=== PATIENT | female | born 1995 | race Caucasian/White ===

== ENCOUNTER → 2021-02-12 15:29 | Outpatient (BNVA) | payer OTHER, SELFPAY | PROVIDERS: PCP Nurse Practitioner Family; Visit Provider Nurse Practitioner Women's Health | DX: Z01.419 Encounter for gynecological examination (general) (routine) without abnormal findings (principal) | CPT/HCPCS: 88175 ==

== ENCOUNTER → 2021-06-09 14:35 | Outpatient (BNVA) | payer OTHER, SELFPAY | PROVIDERS: PCP Nurse Practitioner Family; Visit Provider Nurse Practitioner Psychiatric/Mental Health | DX: Z03.89 Encounter for observation for other suspected diseases and conditions ruled out (principal) | CPT/HCPCS: 80053; 80061; 83036 ==

== ENCOUNTER 2021-12-11 11:27 | Inpatient (IN) | payer OTHER, SELFPAY ==
[2021-12-11 12:00] VITALS: BP 128/88; PULSE 76; RESP 20; TEMP 36.9; O2SAT 99; BMI 31.2
[2021-12-11 12:07] VITALS: BP 122/86; PULSE 72; RESP 20; O2SAT 97
--- NOTE | 2021-12-11 12:30 | W.ED.PSYCHS ---
HPI - Psych General: Chief Complaint: Psychiatric Symptoms Stated Complaint: SI Time Seen by Provider: 12/11/21 12:22 Source: patient Mode of arrival: ambulatory Limitations: no limitations History of Present Illness: 26-year-old female presents emergency room stating she having suicidal thoughts for the last 2 days. She having some relationship issues. Evidently her and her boyfriend are in some sort of open relationship she had violated the rules evidently and they are breaking up. MD complaint: suicidal ideation Onset (ago): minute(s) Duration: constant History of same: No Relieving factors: none Exacerbating factors: none Context: significant life stressor Associated psychiatric symptoms: none Associated symptoms: Reports suicidal ideation; Deny auditory hallucinations, visual hallucinations, delusions, depression, homicidal ideation or racing thoughts Treatments prior to arrival: none If self harm: admits thoughts of self harm Review of Systems Const: Denies: fever(s), chills, body aches, change in appetite, fatigue or malaise ENMT: Denies: throat pain, ear or mastoid pain, nasal discharge or nasal congestion Card: Denies: chest pain, edema, dyspnea on exertion or orthopnea Resp: Denies: dyspnea, productive cough or non-productive cough GI: Denies: abdominal pain, nausea, vomiting, hematemesis, coffee ground emesis, diarrhea, constipation, bloating, hematochezia or melena : Denies: flank pain, difficulty voiding, dysuria, urinary frequency or urinary urgency Skin/Breast: Denies: rash or pruritus Psych: Reports: suicidal ideation; Denies: depression, visual hallucinations, auditory hallucinations or homicidal ideation PFS ED PFSH: Medical History Bipolar II disorder Borderline personality disorder Contraceptive management Depression Generalized anxiety disorder Marijuana use Nicotine dependence, other tobacco product, uncomplicated vaping No pertinent past medical history neghx: htn,dm,thyroid,dvt/pe PCP: Unknown Psychiatric care Surgical History History of cholecystectomy Family History Grandmother Heart disease Paternal grandmother Breast cancer Maternal grandmother---dx age 40's-50's Cancer, Onset Age: 40 [employer] Grandfather Colon cancer Paternal grandfather--dx age 80's Mother Hypertension Family/Other Cervical cancer Paternal Cousin--dx age 20's Denies family history of Ovarian cancer Uterine cancer Thyroid disease Stroke Physical Exam Const: COMMON NORMALS: no acute distress GENERAL APPEARANCE: cooperative and comfortable ORIENTATION/CONSCIOUSNESS: Yes awake, Yes oriented to person, Yes oriented to place and Yes oriented to time HENMT: COMMON NORMALS: normocephalic, atraumatic and hearing grossly normal bilaterally HEAD & SCALP: normocephalic and atraumatic Neck/C-Spine: COMMON NORMALS: no JVD Resp: COMMON NORMALS: normal respiratory effort, No retractions, No use of accessory muscles and clear to auscultation bilaterally AUSCULTATION: clear to auscultation bilaterally Cardio: COMMON NORMALS: no JVD, regular rate, regular rhythm and No murmurs present (Cardio) RATE: regular rate RHYTHM: regular rhythm GI: COMMON NORMALS: Soft to palpation and No hepatosplenomegaly present AUSCULTATION: Yes normoactive bowel sounds PALPATION: Yes Soft to palpation, No Tenderness to palpation present (GI), No Guarding due to palpation present (GI) and Yes No hepatosplenomegaly present Extremity: COMMON NORMALS: normal to inspection, capillary refill normal, no clubbing, cyanosis or edema, no calf tenderness and no pedal edema Neuro: SENSORIUM/ORIENTATION: Yes oriented to person, Yes oriented to place and Yes oriented to time Psych: THOUGHT CONTENT: No delusions Skin: COMMON NORMALS: no rashes or lesions noted GENERAL SKIN EXAM: no rashes or lesions noted Course Vital Signs: Vital signs: Vital Signs Temperature 98.5 F 12/11/21 12:00 Pulse Rate 72 12/11/21 14:09 Respiratory Rate 20 H 12/11/21 12:07 Blood Pressure 122/86 12/11/21 14:09 Pulse Oximetry 97 12/11/21 14:09 MDM - Psych Medical Decision Making Patient severely depressed with suicidal ideation. She has some abrasions on her left wrist that appear to be from mechanical device she tells me there from a cat scratch however they are not spaced appropriately for the next one of them is that her right ankle to the other. In any event none of them are significant enough to cause serious harm. We will go ahead and admit her discussed with Dr. Matos orders written. Medical Records I reviewed the patient's medical records. Lab Data I reviewed the patient's lab results. : 12/11/21 12:30 12/11/21 12:30 Laboratory Results WBC 12.0 10^3/uL (4.0-10.0) H 12/11/21 12:30 RBC 5.15 10^6/uL (4.1-5.3) 12/11/21 12:30 Hgb 14.5 g/dL (11.5-15.3) 12/11/21 12:30 Hct 44.7 % (37.0-47.0) 12/11/21 12:30 MCV 86.8 fl (81-99) 12/11/21 12:30 MCH 28.2 pg (28.0-34.0) 12/11/21 12:30 MCHC 32.4 g/dL (30.0-36.0) 12/11/21 12:30 RDW 12.8 % (12.1-15.1) 12/11/21 12:30 Plt Count 345 10^3/cmm (130-400) 12/11/21 12:30 MPV 10.0 fL (7.4-10.4) 12/11/21 12:30 Neut % (Auto) 69.8 % 12/11/21 12:30 Lymph % (Auto) 23.1 % 12/11/21 12:30 [place] % (Auto) 6.3 % 12/11/21 12:30 Eos % (Auto) 0.1 % 12/11/21 12:30 Baso % (Auto) 0.4 % 12/11/21 12:30 Neut # (Auto) 8.38 10^3/uL (1.8-7.7) H 12/11/21 12:30 Lymph # (Auto) 2.8 10^3/uL (0.8-4.8) 12/11/21 12:30 [place] # (Auto) 0.8 10^3/uL (0.2-0.9) 12/11/21 12:30 Eos # (Auto) 0.0 10^3/uL (0.0-0.8) 12/11/21 12:30 Baso # (Auto) 0.1 10^3/uL (0.0-0.1) 12/11/21 12:30 Nucleated RBC % (auto) 0 % 12/11/21 12:30 Nucleated RBCs # 0.0 /100WBC 12/11/21 12:30 Sodium 140 mmol/L (136-145) 12/11/21 12:30 Potassium 3.5 mmol/L (3.5-5.1) 12/11/21 12:30 Chloride 101 mmol/L (98-107) 12/11/21 12:30 Carbon Dioxide 23 mmol/L (22-29) 12/11/21 12:30 Anion Gap 19.5 (5-19) H 12/11/21 12:30 BUN 8 mg/dL (6-20) 12/11/21 12:30 Creatinine 0.8 mg/dL (0.5-0.9) 12/11/21 12:30 GFR Calculation 88.1 mL/min (90-130) L 12/11/21 12:30 Glucose 95 mg/dL (65-115) 12/11/21 12:30 Calculated Osmolality 288 mOsm/kg (285-295) 12/11/21 12:30 Calcium 9.3 mg/dL (8.5-10.5) 12/11/21 12:30 Total Bilirubin 0.6 mg/dL (0.15-1.2) 12/11/21 12:30 AST 16 U/L (0-32) 12/11/21 12:30 ALT 8 U/L (0-33) 12/11/21 12:30 Alkaline Phosphatase 84 IU/L (35-105) 12/11/21 12:30 Total Protein 7.8 g/dL (6.6-8.7) 12/11/21 12:30 Albumin 5.0 g/dL (3.5-5.2) 12/11/21 12:30 Globulin 2.8 g/dL (1.3-4.6) 12/11/21 12:30 HCG, Qual Negative (Negative) 12/11/21 12:30 Salicylates < 0.3 mg/dL (3-10) L 12/11/21 12:30 Acetaminophen < 5.0 ug/mL (10-30) L 12/11/21 12:30 Discharge Plan Discharge Patient Disposition: Admitted As Inpatient Admit Provider: Holden Matos Clinical Impression: Suicidal ideation, Depression, Borderline personality disorder Condition: Stable Coding Level of Care Code ED Thread Roller for Chg Fwd Exam Comprehensive
[2021-12-11 13:05] LABS: Basophils # 0.1 10^3/uL (0.0-0.1); Basophils % 0.4 %; Eosinophils % 0.1 %; Hematocrit 44.7 % (37.0-47.0); Hemoglobin 14.5 g/dL (11.5-15.3); Lymphocytes # 2.8 10^3/uL (0.8-4.8); Lymphocytes % 23.1 %; Mean Corpuscular HGB Conc 32.4 g/dL (30.0-36.0); Mean Corpuscular Hemoglobin 28.2 pg (28.0-34.0); Mean Corpuscular Volume 86.8 fl (81-99); Monocytes # 0.8 10^3/uL (0.2-0.9); Monocytes % 6.3 %; Neutrophils # 8.38 10^3/uL (1.8-7.7); Neutrophils % 69.8 %; Nucleated Red Blood Cells % 0 %; Platelet Count 345 10^3/cmm (130-400); Red Blood Count 5.15 10^6/uL (4.1-5.3); Red Cell Distribution Width 12.8 % (12.1-15.1)
[2021-12-11 13:12] LABS: HCG, Serum Qual Negative (Negative)
[2021-12-11 13:25] LABS: Alanine Aminotransferase 8 U/L (0-33); Alkaline Phosphatase 84 IU/L (35-105); Anion Gap 19.5 (5-19); Aspartate Amino Transferase 16 U/L (0-32); Blood Urea Nitrogen 8 mg/dL (6-20); Calcium 9.3 mg/dL (8.5-10.5); Carbon Dioxide 23 mmol/L (22-29); Chloride 101 mmol/L (98-107); Globulin 2.8 g/dL (1.3-4.6); Glomerular Filtration Rate 88.1 mL/min (90-130); Glucose 95 mg/dL (65-115); Osmolality Calculated 288 mOsm/kg (285-295); Potassium 3.5 mmol/L (3.5-5.1); Sodium 140 mmol/L (136-145); Total Bilirubin 0.6 mg/dL (0.15-1.2); Total Protein 7.8 g/dL (6.6-8.7)
[2021-12-11 13:42] LABS: Acetaminophen < 5.0 ug/mL (10-30); Salicylate < 0.3 mg/dL (3-10)
[2021-12-11 14:09] VITALS: BP 122/86; PULSE 72; O2SAT 97
[2021-12-11] MEDS: LORazepam 2 mg Tablet PO (14:09)
[2021-12-11 15:06] VITALS: BP 124/78; PULSE 68; RESP 17; TEMP 37.1; O2SAT 98
[2021-12-11 21:29] VITALS: BP 124/91; PULSE 80; RESP 17; TEMP 36.8; O2SAT 96
[2021-12-12 06:00] VITALS: BP 117/76; PULSE 87; RESP 18; TEMP 36.8; O2SAT 97; BMI 31.2
[2021-12-12] MEDS: hyDROXYzine 25 mg Capsule 50 MG PO (09:51)
[2021-12-12] MEDS: buPROPion XL (24 HR) 150 mg Tablet PO (11:28)
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
[2021-12-12 14:00] VITALS: BP 163/75; PULSE 63; RESP 18; TEMP 36.5; O2SAT 98
[2021-12-12 20:52] VITALS: BP 137/70; PULSE 67; RESP 17; TEMP 36.7; O2SAT 97
[2021-12-13 06:00] VITALS: BP 116/74; PULSE 85; RESP 18; TEMP 36.7; O2SAT 98
[2021-12-13] MEDS: buPROPion XL (24 HR) 150 mg Tablet PO (10:32)
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
--- NOTE | 2021-12-13 13:08 | NPU.GN ---
[facility] Group Topic: Whine Barrel Activity General Mood of Group: Erna did attend and participate in group today. She was social with others. Hygiene is good. Client completed the [facility] new patient paperwork with the aide of this senior writer. Client seems stable.
[2021-12-13 14:00] VITALS: BP 116/79; PULSE 61; RESP 18; TEMP 36.6; O2SAT 99
[2021-12-13 15:30] VITALS: BP 116/79; PULSE 61; RESP 18; TEMP 36.6; O2SAT 99
== END 2021-12-13 17:03 | disposition home or self-care (01) | DRG 885 ==
LOC: ER 12:40 → NP 13:40
PROVIDERS: Admitting Provider Psychiatry & Neurology Psychiatry; Emergency Provider Family Medicine; Visit Provider Psychiatry & Neurology Psychiatry
DX: F31.81 Bipolar II disorder (principal); R45.851 Suicidal ideations; F60.3 Borderline personality disorder; F41.1 Generalized anxiety disorder; F17.290 Nicotine dependence, other tobacco product, uncomplicated; Z81.8 Family history of other mental and behavioral disorders; E66.9 Obesity, unspecified; Z68.31 Body mass index [BMI] 31.0-31.9, adult; Z63.0 Problems in relationship with spouse or partner; F43.25 Adjustment disorder with mixed disturbance of emotions and conduct
CPT/HCPCS: 80053; 80307; 84703; 85025; 97150; 97165; 99285

== ENCOUNTER → 2022-04-18 08:09 | Outpatient (BNVA) | payer BC, SELFPAY | PROVIDERS: Visit Provider Nurse Practitioner Psychiatric/Mental Health | DX: F31.81 Bipolar II disorder (principal); F41.1 Generalized anxiety disorder; F60.3 Borderline personality disorder | CPT/HCPCS: 99214 ==

== ENCOUNTER → 2023-02-21 08:40 | Outpatient (BNVA) | payer BC, MEDICAID, SELFPAY | PROVIDERS: Visit Provider Nurse Practitioner Women's Health | DX: Z11.3 Encounter for screening for infections with a predominantly sexual mode of transmission (principal) | CPT/HCPCS: 87491; 87591; 87661 ==

== ENCOUNTER 2023-11-25 10:20 | Emergency (ER) | payer BC, MEDICAID, SELFPAY ==
[2023-11-25 11:29] VITALS: BP 124/84; PULSE 100; RESP 18; TEMP 36.8; O2SAT 98; BMI 32.3
[2023-11-25 14:03] VITALS: BP 141/98; PULSE 93; RESP 18; O2SAT 100
--- NOTE | 2023-11-25 14:28 | W.ED.SKABFB ---
HPI - Skin/Abscess/Foreign Bdy General: Chief complaint: Skin/Abscess/Foreign Body Stated complaint: rash, swollen legs Time Seen by Provider: 11/25/23 13:06 Source: patient Mode of arrival: ambulatory Limitations: no limitations History of Present Illness: Patient presents to the emergency department today accompanied by family for evaluation treatment of continued extremity and truncal rash. Patient states that back in August she was prescribed Seroquel to take on an as-needed basis for her anxiety. Patient is followed by [facility] and reports that it was her physician with [facility] provided her this prescription. She states that for several months straight she was working almost every day and did not want to start a new medication as she was told one of the side effects could be intense drowsiness. It was not until several days ago that she took her first dose. She states after that time she developed a rash affecting her trunk and extremities. It is comprised of circular red areas which she indicates do itch. She states she has not been ill recently. She denies fevers or upper respiratory symptoms. Patient states she was taking some Benadryl when the rash showed up but did not seem to help. She went to [facility] and states they gave her a mixture of some antihistamines and Pepcid. She had a little bit of improvement of the rash but the rash never fully resolved and, patient remains today. She is concerned as she feels like her hands are tight and her feet feel swollen. She states her feet are sore because of the swelling. Patient felt like she had a little bit of itching and swelling to the right upper lip but has had no difficulty in swallowing or breathing. She denies any chest discomfort or shortness of breath. Review of Systems General: Reports: 10 or more systems reviewed and unremarkable except in HPI and below PFSH ED PFSH: Medical History Major depressive disorder, recurrent episode with anxious distress Marijuana use, episodic Nicotine dependence, other tobacco product, uncomplicated Vaping Psychiatric care Borderline personality disorder Generalized anxiety disorder No pertinent past medical history neghx: htn,dm,thyroid,dvt/pe PCP: Unknown Contraceptive management Surgical History History of cholecystectomy Family History Grandmother Heart disease Paternal grandmother Breast cancer Maternal grandmother---dx age 40's-50's Grandfather Colon cancer Paternal grandfather--dx age 80's Mother Hypertension Family/Other Cervical cancer Paternal Cousin--dx age 20's Denies family history of Ovarian cancer Uterine cancer Thyroid disease Stroke Social History Smoking and tobacco/nicotine status: current every day tobacco/nicotine user e-cigarettes E-Cigarette Details: vaporizer device Substance/Drug Use: current Physical Exam Const: COMMON NORMALS: no acute distress, average body habitus and patient oriented x3 HENMT: COMMON NORMALS: normocephalic, atraumatic, hearing grossly normal bilaterally, Normal external nose present and moist oral mucous membranes HEAD & SCALP: normocephalic and atraumatic NOSE: Normal external nose present OTHER: No angioedema. Patient's airway is patent. Mucous membranes are moist. Eye: COMMON NORMALS: Equal, round and reactive pupils present, EOMs intact bilaterally and conjunctivae normal CONJUNCTIVA: Yes conjunctivae normal PUPIL: Yes Equal, round and reactive pupils present Neck/C-Spine: COMMON NORMALS: no JVD Lymph: LYMPHATIC: no lymphadenopathy noted Resp: COMMON NORMALS: normal respiratory effort, No retractions and No use of accessory muscles OTHER: No stridor. No wheezing. Cardio: COMMON NORMALS: no JVD, regular rate and regular rhythm RATE: regular rate RHYTHM: regular rhythm GI: COMMON NORMALS: Normal to inspection, nondistended, normoactive bowel sounds present : COMMON NORMALS: Yes no CVA tenderness BLADDER/KIDNEY EXAM: Yes no CVA tenderness Back/Pelvis: COMMON NORMALS: no CVA tenderness and thoraco-lumbar ROM normal Extremity: COMMON NORMALS: normal to inspection, full ROM and capillary refill normal NARRATIVE EXTREMITY EXAM: I appreciate no edema in the feet or hands. Patient demonstrates ability to ambulate and weight-bear here in the ER. She also has full flexion extension and dinkey operator capabilities of her hands bilaterally. Neuro: COMMON NORMALS: patient oriented x3 Psych: COMMON NORMALS: mental status grossly normal, Normal thought process present, cooperative, normal affect and activity/motor behavior normal THOUGHT PROCESS: Normal thought process present Skin: NARRATIVE SKIN EXAM: Patient has a large areas of her abdomen and extremities covered in rash. Rashes comprised of large, mostly circular areas of central clearing and red ringed rim. It is slightly elevated on the edges and fully blanches with pressure. Rash spares palms and soles. No rash on face. Course Vital Signs: Vital signs: Vital Signs Temperature 98.2 F 11/25/23 11:29 Pulse Rate 67 11/25/23 16:19 Respiratory Rate 18 11/25/23 14:03 Blood Pressure 118/89 11/25/23 16:19 Pulse Oximetry 67 L 11/25/23 16:19 Oxygen Delivery Me thod Room Air 11/25/23 11:29 MDM - Skin/Abscess/Foreign Bdy Medicial Decision Making Patient presents emergency department today for evaluation and treatment of continued extremity and truncal rash. It did seem to correlate with onset of a new medication and patient reports some improvement after treatments with antihistamines and steroids. Patient had denied any recent illnesses. Lab work was generally unremarkable. Thyroid was normal. Even though the patient's new medication is not typically the cause of erythema multiforme, the patient's distribution characteristics of the rash seem very much like erythema multiforme. I went back to talk to the patient and explained that usually this is seen after antibiotics, NSAIDs, or viral illnesses. Patient then informs me that about 2 weeks ago she had COVID. Explained to the patient that there is a percentage of people who develop a rash with COVID which could explain her presentation today. Patient received antihistamines and steroid here in the emergency department had noticeable improvement of the rash though it did not fully resolve. Explained to the patient that this could be present for couple of weeks. We will treat her at home with a course of steroids and continued antihistamines for symptom relief. Patient was given information about erythema multiforme to look over at home. However, she was given strict return precautions for any facial swelling, lip swelling, tongue swelling, throat swelling, stridor, wheezing, or any difficulty breathing. Patient verbalizes understanding and agreement to the treatment plan. Differential Diagnosis Likely viral exanthem; Unlikely abscess of skin or subcutaneous tissue, dermatophytosis, urticaria, herpes zoster, cellulitis, eczema, insect bites, impetigo or contact dermatitis Lab Data 11/25/23 14:31 11/25/23 14:31 Laboratory Results WBC 10.70 10^3/uL (3.29-11.43) 11/25/23 14:31 RBC 4.82 10^6/uL (3.85-5.65) 11/25/23 14:31 Hgb 13.40 g/dL (11.27-16.99) 11/25/23 14:31 Hct 40.4 % (36-47) 11/25/23 14:31 MCV 83.8 fl (85-98) L 11/25/23 14:31 MCH 27.8 pg (27-33) 11/25/23 14:31 MCHC 33.2 g/dL (30-55) 11/25/23 14:31 RDW 12.9 % (12.1-15.1) 11/25/23 14:31 Plt Count 288 10^3/cmm (157-399) 11/25/23 14:31 MPV 10.0 fL (7.4-10.4) 11/25/23 14:31 Neut % (Auto) 79.5 % 11/25/23 14:31 Lymph % (Auto) 17.3 % 11/25/23 14:31 [place] % (Auto) 2.8 % 11/25/23 14:31 Eos % (Auto) 0.0 % 11/25/23 14:31 Baso % (Auto) 0.1 % 11/25/23 14:31 Neut # (Auto) 8.51 10^3/uL (1.8-7.7) H 11/25/23 14:31 Lymph # (Auto) 1.9 10^3/uL (0.8-4.8) 11/25/23 14:31 [place] # (Auto) 0.3 10^3/uL (0.2-0.9) 11/25/23 14:31 Eos # (Auto) 0.0 10^3/uL (0.0-0.8) 11/25/23 14:31 Baso # (Auto) 0.0 10^3/uL (0.0-0.1) 11/25/23 14:31 Nucleated RBC % (auto) 0 % 11/25/23 14:31 Nucleated RBCs # 0.0 /100WBC 11/25/23 14:31 ESR 5 mm/hr (0-15) 11/25/23 14:31 Sodium 139 mmol/L (136-145) 11/25/23 14:31 Potassium 3.8 mmol/L (3.5-5.1) 11/25/23 14:31 Chloride 104 mmol/L (98-107) 11/25/23 14:31 Carbon Dioxide 26 mmol/L (22-29) 11/25/23 14:31 Anion Gap 12.8 (5-19) 11/25/23 14:31 BUN 6 mg/dL (6-20) 11/25/23 14:31 Creatinine 0.6 mg/dL (0.5-0.9) 11/25/23 14:31 GFR Calculation 120.8 mL/min (90-130) 11/25/23 14:31 Glucose 104 mg/dL (65-115) 11/25/23 14:31 Calculated Osmolality 286 mOsm/kg (285-295) 11/25/23 14:31 Calcium 9.6 mg/dL (8.5-10.5) 11/25/23 14:31 Total Bilirubin 0.8 mg/dL (0.15-1.2) 11/25/23 14:31 AST 21 U/L (0-32) 11/25/23 14:31 ALT 10 U/L (0-33) 11/25/23 14:31 Alkaline Phosphatase 73 U/L (35-105) 11/25/23 14:31 Total Protein 7.0 g/dL (6.6-8.7) 11/25/23 14:31 Albumin 3.9 g/dL (3.5-5.2) 11/25/23 14:31 Globulin 3.1 g/dL (1.3-4.6) 11/25/23 14:31 TSH 2.41 uIU/mL (0.27-4.20) 11/25/23 14:31 HCG, Qual Negative (Negative) 11/25/23 13:56 Urine Color Straw (Yellow) 11/25/23 13:56 Urine Appearance Clear (CLEAR) 11/25/23 13:56 Urine pH 7 (5-7) 11/25/23 13:56 Ur Specific [place] 1.000 (1.005-1.030) L 11/25/23 13:56 Urine Protein Neg (Negative) 11/25/23 13:56 Urine Glucose (UA) Norm (Normal) 11/25/23 13:56 Urine Ketones Negative (Negative) 11/25/23 13:56 Urine Blood Neg (Negative) 11/25/23 13:56 Urine Nitrate Negative (Negative) 11/25/23 13:56 Urine Bilirubin Neg (Negative) 11/25/23 13:56 Urine Urobilinogen Norm mg/dL (Negative) 11/25/23 13:56 Ur Leukocyte Esterase 1+ (Negative) H 11/25/23 13:56 Urine RBC None /hpf (0-2) 11/25/23 13:56 Urine WBC 15-25 /hpf (0-5) H 11/25/23 13:56 Ur Squamous Epith Cells 0-4 /hpf (0-5) H 11/25/23 13:56 Amorphous Sediment Not Reportable 11/25/23 13:56 Urine Bacteria Trace /hpf (NONE) 11/25/23 13:56 No radiology studies performed this visit Discharge Plan Discharge Patient Disposition: Home Clinical Impression: Erythema multiforme Condition: Stable Prescriptions: New prednisone 20 mg tablet See Rx Instructions .ROUTE .COMPLEX 14 Days Qty: 25 0RF Rx Instructions: take 3 tabs daily for 3 days. Take 2 tablets daily for 5 days. Then take 1 tablet daily until gone. No Action ParaGard T 380A 380 square mm intrauterine device 1 device intrauterine ONCE Qty: 1 0RF quetiapine [Seroquel] 25 mg tablet 25 mg PO DAILY PRN (Reason: anxiety/agitation) Qty: 30 2RF Rx Instructions: May take one tablet daily as needed for anxiety/agitation bupropion HCl 150 mg tablet sustained-release 12 hr 150 mg PO BID Qty: 60 3RF Rx Instructions: Take one tablet in am and at 2 pm Discharge Orders: Discharge ED (Routine); Ordered 11/25/23 Ordered By: Trish Vela Discharge Diet: Usual diet Discharge Activity: Increase activity as tolerated Activity Restrictions/Additional Instructions: All of your lab work today looks good. You have no signs of any bacterial infection, anemia, abnormal blood counts, liver, kidney, or electrolyte abnormalities. Your thyroid function is also within normal limits today. Given the negative lab work, characteristic of your rash and, with your recent COVID history I do believe you have a condition called erythema multiforme. This is a rash that we see in a small percentage of patients who have COVID. I am providing you some medication to help treat this rash but, be aware rash can last a couple of weeks. Want you to continue taking your Benadryl and your cetirizine as these can also help control the rash. While this treatment will most likely not resolve the rash, we do hope to improve your itching and the severity of the redness of the rash. Be aware that hot showers or exercise can cause the rash to be more enhanced and noticeable. If you develop any facial swelling, lip swelling, tongue swelling, throat swelling, difficulty breathing, shortness of breath you need to be seen and reevaluated in the ER as that type of reaction is different and requires emergent evaluation. Coding Level of Care Code ED Yield Improvement Engineer for Tiffanie Franco
[2023-11-25] MEDS: famotidine 20 mg/2 mL INJ 40 MG IVP (14:35)
[2023-11-25] MEDS: sodium chloride 0.9% 500 ML IV (14:36)
[2023-11-25] MEDS: diphenhydrAMINE 50 mg/mL SDV 1mL IVP (14:38)
[2023-11-25] MEDS: methylPREDNISolone sod succ 125 mg/2 mL INJ IVP (14:39)
[2023-11-25 14:40] LABS: Basophils % 0.1 %; Hematocrit 40.4 % (36-47); Lymphocytes # 1.9 10^3/uL (0.8-4.8); Lymphocytes % 17.3 %; Mean Corpuscular HGB Conc 33.2 g/dL (30-55); Mean Corpuscular Hemoglobin 27.8 pg (27-33); Mean Corpuscular Volume 83.8 fl (85-98); Monocytes # 0.3 10^3/uL (0.2-0.9); Monocytes % 2.8 %; Neutrophils # 8.51 10^3/uL (1.8-7.7); Neutrophils % 79.5 %; Nucleated Red Blood Cells % 0 %; Platelet Count 288 10^3/cmm (157-399); Red Blood Count 4.82 10^6/uL (3.85-5.65); Red Cell Distribution Width 12.9 % (12.1-15.1)
[2023-11-25 14:46] LABS: Erythrocyte Sedimentation Rate 5 mm/hr (0-15)
[2023-11-25 14:50] LABS: HCG Qualitative Urine. Negative (Negative)
[2023-11-25 14:57] LABS: Add Urine Culture? Yes; Add Urine Microscopic? YES; Bacteria Urine TRACE /hpf; Bilirubin Urine Neg (Negative); Blood Urine Neg (Negative); Glucose Urine UA Norm (Normal); Ketones Urine Negative (Negative); Leukocyte Esterase Urine 1+ (Negative); Nitrate Urine Negative (Negative); Protein Urine Neg (Negative); Squamous Epithelial Cell Urine 0-4 /hpf (0-5); Urine Appearance Clear (CLEAR); Urine Color Straw (Yellow); Urobilinogen Urine Norm (Negative); WBC Urine 15-25 /hpf (0-5); pH Urine 7 (5-7)
[2023-11-25 15:05] LABS: Alanine Aminotransferase 10 U/L (0-33); Albumin Level 3.9 g/dL (3.5-5.2); Alkaline Phosphatase 73 U/L (35-105); Anion Gap 12.8 (5-19); Aspartate Amino Transferase 21 U/L (0-32); Blood Urea Nitrogen 6 mg/dL (6-20); Calcium 9.6 mg/dL (8.5-10.5); Carbon Dioxide 26 mmol/L (22-29); Chloride 104 mmol/L (98-107); Globulin 3.1 g/dL (1.3-4.6); Glomerular Filtration Rate 120.8 mL/min (90-130); Glucose 104 mg/dL (65-115); Osmolality Calculated 286 mOsm/kg (285-295); Potassium 3.8 mmol/L (3.5-5.1); Sodium 139 mmol/L (136-145); Thyroid Stimulating Hormone 2.41 uIU/mL (0.27-4.20); Total Bilirubin 0.8 mg/dL (0.15-1.2)
[2023-11-25 16:19] VITALS: BP 118/89; PULSE 67; O2SAT 67
== END 2023-11-25 16:20 | disposition home or self-care (01) ==
PROVIDERS: Emergency Provider Physician Assistant
DX: L51.9 Erythema multiforme, unspecified (principal); Z72.0 Tobacco use
CPT/HCPCS: 80053; 81001; 81025; 84443; 85025; 85651; 87086; 96361; 96374; 96375; 99284; J1200; J2930; J3490; J7040

== ENCOUNTER → 2023-12-01 10:49 | Outpatient (BNVA) | payer BC, SELFPAY | PROVIDERS: Visit Provider Family Medicine | DX: L50.9 Urticaria, unspecified (principal) | CPT/HCPCS: 82785; 86003 ==

== ENCOUNTER → 2024-01-01 09:31 | Outpatient (BNVA) | payer BC, MEDICAID, SELFPAY | PROVIDERS: PCP Family Medicine; Referring Provider Nurse Practitioner Psychiatric/Mental Health; Visit Provider Internal Medicine Cardiovascular Disease | DX: Z79.899 Other long term (current) drug therapy (principal) | CPT/HCPCS: 93005 ==

== ENCOUNTER → 2024-02-07 14:44 | Outpatient (BNVA) | payer OTHER, SELFPAY | PROVIDERS: PCP Family Medicine; Visit Provider Nurse Practitioner Psychiatric/Mental Health | DX: Z79.899 Other long term (current) drug therapy (principal) | CPT/HCPCS: 80061; 83036 ==

== ENCOUNTER → 2024-02-27 13:27 | Outpatient (BNVA) | payer BC, SELFPAY | PROVIDERS: PCP Family Medicine; Visit Provider Nurse Practitioner Women's Health | DX: Z12.4 Encounter for screening for malignant neoplasm of cervix (principal) | CPT/HCPCS: 88175 ==

== ENCOUNTER → 2024-04-08 14:24 | Outpatient (BNVA) | payer BC, MEDICAID, SELFPAY | PROVIDERS: PCP Family Medicine; Visit Provider Internal Medicine | DX: R07.9 Chest pain, unspecified (principal) | CPT/HCPCS: 93005 ==

== ENCOUNTER 2024-04-18 07:03 | Outpatient (CLI) | payer BC, MEDICAID, SELFPAY ==
--- NOTE | 2024-04-18 07:15 | USCV_ITS ---
Erna Soria Age: 29 Gender: F : 1995 Exam Date: 04/18/2024 07:16 Ordering Phys: Juan Neumann M.D ([email or web address]) Technologist: JOHN Exam Location: [facility] – [place] Indication: CHEST PAIN AND SHORTNESS OF BREATH BP: 138 / 86 HR: 79 Rhythm: Sinus Technical Quality: Adequate MEASUREMENTS (Male / Female) Normal Values 2D ECHO LV Diastolic Diameter PLAX 6.1 cm 4.2 - 5.9 / 3.9 - 5.3 cm IVS Diastolic Thickness 0.9 cm 0.6 - 1.0 / 0.6 - 0.9 cm IVS Systolic Thickness 1.5 cm LVPW Diastolic Thickness 1.6 cm 0.6 - 1.0 / 0.6 - 0.9 cm LVPW Systolic Thickness 2.1 cm LVOT Diameter 2.0 cm LV Ejection Fraction 2D Teich 63.2 % LV Ejection Fraction MOD 2C 66.4 % LV Ejection Fraction 2C AL 66.6 % LA Diameter 2.7 cm RA Systolic Volume 4C AL 22.1 ml RA Systolic Volume 4C MOD 21.1 ml LA Sys Volume AL 37.7 cm cubed LA Sys Volume Index AL 16.4 cm cubed/m squared Aorta at Sinotubular Diameter 2.8 cm IVC Diameter 1.1 cm M-MODE LA Ao Ratio MM 0.9 AV Cusp Separation MM 1.7 cm DOPPLER AV Peak Velocity 155.0 cm/s LVOT Peak Velocity 114.0 cm/s AV Area Cont Eq vti 2.6 cm squared AV Area Cont Eq pk 2.4 cm squared MV Peak Velocity 101.0 cm/s MV Area PHT 3.5 cm squared Mitral E to A Ratio 1.0 TR Peak Velocity 107.0 cm/s TR Peak Gradient 4.6 mmHg TR Mean Velocity 85.0 cm/s TR Mean Gradient 3.1 mmHg TR Velocity Time Integral 33.9 cm TV Peak E Velocity 75.0 cm/s Right Atrial Pressure 3.0 mmHg Pulmonary Artery Systolic Pressu 7.6 mmHg PV Peak Velocity 101.0 cm/s RV Ejection Time 0.3 s FINDINGS Left Ventricle Left ventricle is dilated. LV systolic function is normal with EF of 55-60%. No regional wall motion abnormalities are seen. Right Ventricle Normal in size and function Right Atrium Normal in size Left Atrium Normal in size Mitral Valve Structurally normal mitral valve. Trace mitral regurgitation. Aortic Valve Structurally normal aortic valve. No significant stenosis or regurgitation Tricuspid Valve Insufficient TR jet to evaluate RVSP. Pulmonic Valve Not well visualized Pericardium Normal Aorta Normal in size IVC Appears to be normal CONCLUSIONS Left ventricle is dilated. LV systolic function is normal with EF of 55-60% Trace mitral regurgitation No comparison studies are available. Juan Neumann MD (Electronically Signed) Final Date: 21 April 2024 22:50 S
== END 2024-04-18 07:04 | disposition home or self-care (01) ==
PROVIDERS: PCP Family Medicine; Visit Provider Internal Medicine
DX: R07.9 Chest pain, unspecified (principal); R06.02 Shortness of breath; I34.0 Nonrheumatic mitral (valve) insufficiency
CPT/HCPCS: 93306

== ENCOUNTER 2025-01-30 09:49 | Day surgery (SDC) | payer BC, MEDICAID, SELFPAY ==
[2025-01-30] VITALS (11 sets, daily range): BP systolic 114–163; BP diastolic 47–84; PULSE 49–91; RESP 13–17; TEMP 36.1–36.2; O2SAT 95–100; BMI 32.3
--- NOTE | 2025-01-30 00:01 | P.HP_ITS ---
Same Day Surgery H&P Indication for Procedure/HPI DATE OF PROCEDURE: January 30, 2025 CHIEF COMPLAINT/INDICATIONFOR SURGICAL PROCEDURE: desires permanent sterilization PREOP DIAGNOSIS: desires permanent sterilization PLANNED PROCEDURE: Operation Date: 01/30/25 11:15 Proposed Procedures p Laparoscopic bilateral partial salpingectomy 36998, Z30.2(Bilateral) - Troy Hobbs MD 29 y.o. G0 Wants permanent sterilization Medications/Allergies* Home Medications ?Medication ?Instructions ?Recorded ?Confirmed ?Type omalizumab 75 mg/0.5 mL mg SUBCUT 04/08/24 01/25/25 History subcutaneous auto-injector (Xolair) Allergies/Adverse Reactions Allergy/AdvReac Type Severity Reaction Status Date / Time amoxicillin Allergy Mild Hives Verified 01/25/25 14:29 red meat Allergy Mild Unknown Uncoded 01/25/25 14:29 maple AdvReac Mild Unknown Uncoded 01/25/25 14:29 Pertinent History/Comorbid Conditions* Medical History (Updated 12/15/24 @ 02:27 by Troy Hobbs MD) Attention deficit hyperactivity disorder (ADHD), combined type, mild Autism spectrum disorder Major depressive disorder, recurrent episode with anxious distress Nicotine dependence, other tobacco product, uncomplicated Vaping Psychiatric care Generalized anxiety disorder No pertinent past medical history neghx: htn,dm,thyroid,dvt/pe PCP: Unknown Contraceptive management Surgical History (Updated 01/22/20 @ 13:40 by Tanja Cameron, GAME ATTENDANT, WHNP) History of cholecystectomy Family History (Updated 02/12/21 @ 15:15 by Tanisha Borrero) Cervical cancer Family/Other Paternal Cousin--dx age 20's Colon cancer Grandfather Paternal grandfather--dx age 80's Heart disease Grandmother Paternal grandmother Breast cancer Grandmother Maternal grandmother---dx age 40's-50's Hypertension Mother Denies family history of Ovarian cancer Uterine cancer Thyroid disease Stroke Social History Smoking and tobacco/nicotine status: current every day tobacco/nicotine user Pertinent Exam Findings alert, oriented x 3, clear to auscultation bilaterally and regular rate & rhythm Recommendations Surgery/Procedure today Coding Level of Care Code Acute Code for Chg Fwd
[2025-01-30] MEDS: sodium chloride 0.9% 1,000 ML 30 ML IV (10:15)
--- NOTE | 2025-01-30 11:35 | ANES.PREANE2 ---
Pre-Anesthetic Assessment Height/Weight: Height 5 ft 10 in Weight 225 lb Temp Pulse Resp BP Pulse Ox O2 Del Method 97.0 F L 91 17 163/81 98 Room Air 01/30/25 10:10 01/30/25 10:10 01/30/25 10:10 01/30/25 10:10 01/30/25 10:10 01/30/25 10:10 Preop Diagnosis: desires permanent sterilization Operation Date: 01/30/25 11:15 Proposed Procedures p Laparoscopic bilateral partial salpingectomy 21406, Z30.2(Bilateral) - Troy Hobbs MD Was Beta Karissa taken within 24 hours: N/A Was Clonidine taken within 24 hours: N/A Last intake: Intake Last Liquid Date 01/29/25 Last Liquid Time 00:00 Last Solid Date 01/29/25 Last Solid Time 00:00 Social Tobacco and No alcohol Exam alert, oriented x 3, clear to auscultation bilaterally and regular rate & rhythm Airway Submandibular: within normal limits Cervical ROM: within normal limits Mallampati: Class II Dentition: full Anesthetic Plan ASA status: 3 Anesthesia: General Other: No prior issues with anesthesia NPO since yesterday Current smoker Patient is on omalizumab for chronic hives and swelling Hypertension on metoprolol Takes Adderall for ADHD History of autism spectrum disorder, highly functioning Prior echo EF 55 to 60% Plan for GETA Medications/Allergies Home Medications ?Medication ?Instructions ?Recorded ?Confirmed ?Last Taken ?Type copper 380 square mm intrauterine 1 device intrauterine ONCE #1 ea 03/22/21 01/30/25 Unknown Rx device (ParaGard T 380A) cetirizine 10 mg tablet (Zyrtec) 10 mg PO DAILY PRN allergy 02/08/24 01/30/25 01/30/25 Rx symptoms #90 tabs omalizumab 75 mg/0.5 mL 75 mg SUBCUT .MONTHLY 04/08/24 01/30/25 01/02/25 History subcutaneous auto-injector (Xolair) metoprolol tartrate 25 mg tablet 12.5 mg (1/2 x 25 mg) PO BID #90 07/16/24 01/30/25 01/29/25 Rx tabs atomoxetine 60 mg capsule 60 mg PO DAILY #30 caps 01/20/25 01/30/25 01/30/25 Rx (Strattera) dextroamphetamine-amphetamine ER 25 mg PO DAILY 30 days #30 caps 01/20/25 01/30/25 01/30/25 Rx 25 mg 24hr capsule,extend release (Adderall XR) Allergies Allergy/AdvReac Type Severity Reaction Status Date / Time amoxicillin Allergy Mild Hives Verified 01/25/25 14:29 Alpha-Gal Allergy ADR-Diarrhe Verified 01/30/25 10:06 (Idblowaad-Gcbwj-6,3-Gala a red meat Allergy Mild ALGY-Hives Uncoded 01/30/25 07:15 maple AdvReac Mild Unknown Uncoded 01/25/25 14:29 [facility] Anesthesia Medical History Attention deficit hyperactivity disorder (ADHD), combined type, mild Autism spectrum disorder Major depressive disorder, recurrent episode with anxious distress Nicotine dependence, other tobacco product, uncomplicated Vaping Psychiatric care Generalized anxiety disorder No pertinent past medical history neghx: htn,dm,thyroid,dvt/pe PCP: Unknown Contraceptive management Surgical History History of cholecystectomy Family History Grandmother Heart disease Paternal grandmother Breast cancer Maternal grandmother---dx age 40's-50's Grandfather Colon cancer Paternal grandfather--dx age 80's Mother Hypertension Family/Other Cervical cancer Paternal Cousin--dx age 20's Denies family history of Ovarian cancer Uterine cancer Thyroid disease Stroke Social History Smoking and tobacco/nicotine status: current every day tobacco/nicotine user Data Anesthesia Cardiac Studies: Echocardiogram 04/18/24 Cardiac Event Monitor 04/09/24
--- NOTE | 2025-01-30 12:30 | W.PM.OPSUD ---
Surgery/Procedure H&P Update DATE OF PROCEDURE: January 30, 2025 DATE H&P PERFORMED: 01/29/25 H&P UPDATE INFORMATION: I have reviewed H&P completed within last 30 days, I have examined patient prior to procedure and No changes to prior documentation PREOP DIAGNOSIS: desires permanent sterilization PLANNED PROCEDURE: Operation Date: 01/30/25 11:15 Proposed Procedures p Laparoscopic bilateral partial salpingectomy 70893, Z30.2(Bilateral) - Troy Hobbs MD
[2025-01-30 12:46] LABS: OR HCG Qualitative Urine Negative (Negative)
--- NOTE | 2025-01-30 13:20 | P.OP_ITS ---
Operative Report Date of procedure: January 30, 2025 Pre-op diagnosis: desires permanent sterilization Post-op diagnosis: same Post-op findings: normal uterus, tubes, and ovaries Procedure done: laparoscopic bilateral salpingectomy Implants: none Specimens removed/disposition: bilateral fallopian tubes, sent to pathology Surgeon: Troy Hobbs MD Anesthesia: General Estimated blood loss (mL): 5 Complications: none Findings: normal uterus, tubes, and ovaries Condition: stable Disposition: PACU Brief History: 29 y.o. desires permanent sterilization Procedure: Informed consent was obtained. The patient was taken to the OR and placed on the table. General endotracheal anesthesia was induced. The patient was then placed in dorsolithotomy position. The abdomen and perineum were then prepped and draped in the usual fashion. A 5 mm subumbilical skin incision was made. A 5 mm trocar with sheath was then inserted into the peritoneal cavity under direct visualization with the laparoscope. After confirming intraperitoneal position, pneumoperitoneum was achieved. Two separate 5 mm incisions were made in the right and left mid- quadrants. 5 mm trocars with sheaths were then inserted into the peritoneal cavity under direct visualization with the laparoscope. The right fallopian tube was then identified to its fimbrial end. Starting at the fimbrial end, the mesosalpinx was then coagulated and cut using the Ligasure. Almost the entire right fallopian tube was excised and removed via one of the ports. This was sent to pathology. There was no bleeding seen. Similarly, the left fallopian tube was identified to its fimbrial end. Almost the entire left fallopian tube was excised and removed, sent to pathology. There was no bleeding. All instruments were then removed from the peritoneal cavity after the pneumoperitoneum was allowed to escape. The skin incisions were closed using 3- O chromic in subcuticular fashion. Dermabond was applied. The patient was then placed supine and awakened, taken the the PACU in good condition. Postop condition: stable EBL: 5 cc Complications: none Sponge, needles, and instruments counts correct x two
--- NOTE | 2025-01-30 14:01 | ANE.PACU2 ---
Inpatient post-anesthesia follow up: Airway intact: Yes Vital signs: Temperature 97.0 F Pulse Rate 91 Respiratory Rate 17 Blood Pressure 163/81 Pulse Oximetry 98 Oxygen Delivery Me thod Room Air Oxygen Flow Rate 6 Fraction of Inspir ed Oxygen Hydration adequate: Yes Nausea and vomiting: No Pain level: 2 Mental status: Baseline
== END 2025-01-30 15:03 | disposition home or self-care (01) ==
PROVIDERS: PCP Family Medicine; Visit Provider Obstetrics & Gynecology
PROC: (CPT 58661; principal; 2025-01-30 11:15)
DX: Z30.2 Encounter for sterilization (principal); F17.290 Nicotine dependence, other tobacco product, uncomplicated; I10 Essential (primary) hypertension; L50.8 Other urticaria; F90.2 Attention-deficit hyperactivity disorder, combined type; F84.0 Autistic disorder; Z79.899 Other long term (current) drug therapy
CPT/HCPCS: 58661; 81025; 88302; J1100; J1200; J2405; J3010; J3490; J7030; J9999

== ENCOUNTER → 2025-05-23 16:27 | Outpatient (BNVA) | payer BC, MEDICAID, SELFPAY | PROVIDERS: PCP Family Medicine; Visit Provider Nurse Practitioner Women's Health | DX: R30.0 Dysuria (principal) | CPT/HCPCS: 84315 ==

== ENCOUNTER → 2025-07-18 15:02 | Outpatient (BNVA) | payer BC, MEDICAID, SELFPAY | PROVIDERS: PCP Family Medicine; Visit Provider Family Medicine | DX: S83.003A Unspecified subluxation of unspecified patella, initial encounter (principal); X58.XXXA Exposure to other specified factors, initial encounter | CPT/HCPCS: 73562 ==

== ENCOUNTER → 2025-08-05 08:13 | Outpatient (BNVA) | payer BC, SELFPAY | PROVIDERS: PCP Family Medicine; Visit Provider Physician Assistant | DX: S83.001A Unspecified subluxation of right patella, initial encounter (principal); M25.361 Other instability, right knee; X58.XXXA Exposure to other specified factors, initial encounter | CPT/HCPCS: 73560; 73565 ==